=== PATIENT | female | born 1970 | race Two or more races ===

== ENCOUNTER 2024-08-30 07:10 | Outpatient (CLI) | payer MEDICAID, SELFPAY ==
[2024-08-29 10:00] VITALS: BMI 32.3
--- NOTE | 2024-08-29 10:15 | EKG_ITS ---
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
[2024-08-29 11:32] LABS: Basophils % (Auto) 1 % (0-2.5); Eosinophils # (Auto) 0.1 Thou/mm3 (0.0-0.5); Eosinophils % (Auto) 1 % (0-10); Hematocrit 37.2 % (36.0-46.0); Hemoglobin 12.5 g/dL (12.0-16.0); Immature Granulocytes % (Auto) 0 % (0-0); Immature Granulocytes Auto 0.01 Thou/mm3 (0.00-0.00); Lymphocytes # (Auto) 3.1 Thou/mm3 (1.0-4.8); Lymphocytes % (Auto) 55 % (10-50); Mean Corpuscular HGB Conc 33.6 g/dl (31.0-37.0); Mean Corpuscular Hemoglobin 27.1 pg (25.0-35.0); Mean Corpuscular Volume 81 fL (80-100); Monocytes # (Auto) 0.2 Thou/mm3 (0.0-0.8); Monocytes % (Auto) 4 % (0-12); Neutrophils # (Auto) 2.2 Thou/mm3 (1.8-7.7); Neutrophils % (Auto) 39 % (37-80); Nucleated Red Blood Cell % 0 /100 WBC (0); Platelet Count 382 Thou/mm3 (140-440); RDW Standard Deviation 41.1 fL (36.4-46.3); Red Blood Count 4.62 Miln/mm3 (4.00-5.20); White Blood Count 5.6 Thou/mm3 (3.6-11.0)
[2024-08-29 11:42] LABS: Partial Thromboplastin Time 26.8 Seconds (22.0-36.0); Prothrombin Time 10.8 Seconds (9.0-12.2)
[2024-08-29 11:43] LABS: Alanine Aminotransferase 21 U/L (10-49); Albumin, Serum 4.4 gm/dL (3.5-5.0); Albumin/Globulin Ratio 1.4 (1.2-2.2); Alkaline Phosphatase 132 U/L (46-116); Anion Gap 7 (7-16); Aspartate Amino Transferase 18 U/L (0-34); BUN/Creatinine Ratio 14 Ratio (12-20); Bilirubin,Total 0.7 mg/dL (0.3-1.2); Blood Urea Nitrogen 10 mg/dL (9-23); Calcium 9.3 mg/dL (8.3-10.6); Calcium (Corrected) 9.3 mg/dL (8.5-10.1); Carbon Dioxide 28.7 mMol/L (20.0-31.0); Chloride 104 mMol/L (98-107); Creatinine (Component) 0.7 mg/dL (0.6-1.3); Estimated Creatinine Clearance 85.6 mL/min (>60); Globulin 3.1 gm/dL (2.3-3.5); Glucose 100 mg/dL (74-106); Osmolality,Calculated 278 (275-295); Potassium 3.9 mMol/L (3.4-5.1); Sodium 140 mMol/L (136-145); Total Protein 7.5 gm/dL (5.7-8.2); eGFR > 60 See Note
[2024-08-30] VITALS (11 sets, daily range): BP systolic 110–140; BP diastolic 70–81; PULSE 63–77; RESP 12–19; TEMP 36.2–36.4; O2SAT 95–100; BMI 31.3
--- NOTE | 2024-08-30 | XR_ITS ---
Examination: Mammogram breast tissue specimen Exam date and time: August 30, 2024 1216 hours INDICATIONS: Biopsy-positive for carcinoma nodule 1:00 position left breast, preop ultrasound-guided needle localization of this mass this morning, posterior surgical resection TECHNIQUE AND FINDINGS: Single mammographic breast tissue specimen Marker and nodule are in the center of the specimen with wide margins IMPRESSION: Breast marker and nodule are in the center of the specimen
--- NOTE | 2024-08-30 08:28 | SUR.PREOP ---
Patient expressed gratitude for prayer before their procedure.
--- NOTE | 2024-08-30 09:00 | XR_ITS ---
Examination: Preop ultrasound-guided localization biopsy positive for carcinoma lesion left breast 1:00 Left breast sonography limited Exam date and time: August 30, 2024 0954 hours INDICATIONS: Biopsy left breast 1:00 nodule August 02, 2024 positive for breast carcinoma, preop surgical excision today, need for localization for the surgical excision TECHNIQUE AND FINDINGS: Informed consent provided. Timeout performed. Skin prepped over the left breast and sterile drape applied hand hygiene 1% lidocaine administered for local anesthesia Utilizing ultrasonographic guidance successful placement of a localization 5 cm Kopans needle in the suspicious nodule 1:00 position 1 cc methylene blue introduced Hookwire introduced and needle withdrawn Estimated blood loss 1 cc IMPRESSION: Successful preoperative ultrasound-guided localization biopsy positive for carcinoma lesion left breast 1:00 position
--- NOTE | 2024-08-30 09:00 | XR_ITS ---
Examination: [place] lymph node study left breast Nuclear medicine lymph glands imaging Exam date and time: August 30, 2024 0900 hours INDICATIONS: Biopsy-positive for breast carcinoma lesion 1:00 position left breast, preop lymph node dissection lumpectomy today TECHNIQUE AND FINDINGS: Informed consent provided. Timeout performed. Skin prepped over the left breast and sterile drape applied hand hygiene 1% lidocaine administered for local anesthesia 2.0 mCi technetium 90 9M filtered sulfur colloid introduced June No imaging Estimated blood loss 0 cc IMPRESSION: Successful sentinel lymph node study left breast as above
--- NOTE | 2024-08-30 13:03 | SUR.PHASEI ---
pt recieved from OR in recovery bay 1. pt obtunded, breathing unlabored on 8l oxymask, oral airway in place. v/s stable. pt dressing to left breast cdi, breast binder in place. report received from Dr. Hinton and [place] TORRES.
--- NOTE | 2024-08-30 13:21 | PD.SUROPNT ---
Date of Procedure 08/30/24 Pre Op Diagnosis Infiltrating ductal carcinoma of the left breast at the upper and outer quadrant at 1 o'clock position. Post Op Diagnosis Same Procedure Partial mastectomy of the left breast after guidewire localization [place] node biopsy of the left axilla Findings Patient was found to have 2 lymph nodes in the left axilla which showed radioactivity after technetium injection which were removed. Procedure Description The patient was taken to the x-ray suite where she underwent guidewire localization using ultrasound by Dr. Ovalle. The lesion was located at the upper and outer quadrant at 1 o'clock position. Patient also had a sentinel node injection performed by him. Then the patient was brought to the operating room. She was given LMA general anesthesia. Her left breast on the chest and the axilla including the left upper extremity were washed with ChloraPrep solution and draped in sterile manner. Timeout was performed. Then I used a neoprobe and identified some activity over the left axilla. I made a small incision in the left axilla for about 5 cm in length and dissected the subcutaneous tissue. At the deeper level there was activity by the neoprobe showing an uptake of technetium. I identified those areas and I did notice 2 lymph nodes which are about 1 cm in diameter adjoining to each other surrounding area was checked for any other activity and none was found. Then the wound was closed in layers using 3-0 chromic sutures over the left axilla. Skin was injected with half percent Marcaine and closed with 4-0 Monocryl subcuticular. Then attention was turned onto the breast where an upper outer quadrant lesion was approached by an incision peripherally over the upper portion of the left breast. I was able to dissect breast tissue and see the methylene blue. With the help of assistance I retracted this area and removed all the methylene blue stained tissues with the guidewire tip at the center of the specimen. X-ray was obtained the specimen and found out that the lesion was removed completely as per the radiologist. However I noticed that there was a incomplete margin therefore I went back and removed additional breast tissues and sent for pathology. Then the bleeding points were controlled with cautery and hot packs were used to look for any capillary bleeding. The subcutaneous tissue was left in place and the skin was closed with 4-0 Monocryl after injecting half percent Marcaine. Then the dressing was applied over both axilla and over the breast using breast binder and patient tolerated procedure well. Anesthesia other (General LMA) Pathology / specimen Other (1. 2 sentinel nodes, #2 left breast lesion with a guidewire, #3 additional medial margin) IVF Infused 800 Estimated Blood Loss 100 Condition Stable Disposition PACU Surgeon Partha Galvez MD Surgical Staff Operation Date: 08/30/24 11:15 Case Staff Anesthesiologist: Bandar Hinton RN First Assistant: Yessi Castro
[2024-08-30] MEDS: fentaNYL CIT INJ 50 mCg/ML AMP 2ML 25 MCG IV ×4 (13:23→14:51)
--- NOTE | 2024-08-30 13:47 | SUR.PHASEII ---
pt able to tolerate oral fluids without difficulty swallowing or nausea/vomiting.
--- NOTE | 2024-08-30 15:20 | SUR.PHASEII ---
pt awake and alert, breathing unlabored on room air. v/s stable. pt dressing to left breast cdi, breast binder in place. pt able to ambulate to wheelchair with steady gait. d/c instructions given with huey Zamora in room, all questions answered. pt d/c via wheelchair with all belongings.
== END 2024-08-30 15:20 | disposition home or self-care (01) ==
LOC: S2EX 09:14 → SIRX 09:15
PROVIDERS: PCP Nurse Practitioner; Referring Provider Surgery; Visit Provider Surgery
PROC: (CPT 19301; principal; 2024-08-30 11:00)
DX: C50.412 Malignant neoplasm of upper-outer quadrant of left female breast (principal); Z17.0 Estrogen receptor positive status [ER+]; Z17.21 Progesterone receptor positive status; Z17.32 Human epidermal growth factor receptor 2 negative status; E11.9 Type 2 diabetes mellitus without complications; Z79.85 Long-term (current) use of injectable non-insulin antidiabetic drugs; Z79.84 Long term (current) use of oral hypoglycemic drugs; Z01.810 Encounter for preprocedural cardiovascular examination
CPT/HCPCS: 19301; 38500; 38900; 19285; 36415; 76098; 80053; 85025; 85610; 85730; 93005; A4217; A4649; A9541; J0131; J1100; J2250; J2405; J2704; J3010; J3490

== ENCOUNTER 2024-10-24 10:48 | Outpatient (RCR) | payer MEDICAID, SELFPAY ==
--- NOTE | 2024-10-24 12:42 | CTCCONSULT_ITS ---
[facility] [address] [place], [place] [address] Consultation Note Date: 10/24/2024 MR#: [id number] Name: SANDRA WISE : 1970 Dx: C50.412 Malignant neoplasm of upper-outer quadrant of left female breast Attending physician. Anne Cruz NP [facility] [place] Referring physician. Ebenezer Galvez MD Reason for consultation. Patient with stage I left breast CA status post partial mastectomy referred to the cancer treatment center. History of Present Illness: Patient is a 54-year-old lady who felt the left breast lump following imaging studies showing suspicious area upper outer quadrant at 1:00 underwent a biopsy 08/02/2024 revealing 0.7 cm invasive ductal carcinoma ER/KS positive HER2/arielle negative by FISH. Patient underwent left partial mastectomy August 30, 2024 sentinel node removal performed by Dr. Sol. Final path was invasive ductal carcinoma 1.5 x 0.8 x 0.6 cm with 1 sentinel lymph node negative and 1 of 1 intramammary lymph node 0.15 cm. ER/KS positive HER2/arielle by FISH was negative. [id number] stage Ib. Patient now referred to the cancer treatment center. Past Medical History: History of chickenpox diabetes mellitus Meds metformin Acyclovir Trulicity Allergies none to meds Family history. 2 sisters reportedly recently diagnosed with breast CA. Social History: Patient perimenopausal age of first is 17 for pregnancies 4 worse Review of Systems: Railroad the breast lump Physical Exam: General: Well-appearing lady no acute distress HEENT: Atraumatic no cephalic extraocular is intact no oral lesion no cervical supraclavicular adenopathy CV: Left breast well-healed scar upper outer quadrant and axillary region. Chest clear to auscultation heart regular rate and rhythm ABD: Soft no organomegaly or tenderness EXT: No signs clubbing or edema. Assessment:#1 Stage Ib [id number] ER positive [place] positive HER2/arielle negative by FISH status post left partial mastectomy sentinel node removal. 08/30/2024. #2. strong family history of breast cancer with 2 sisters similar to her in age recently diagnosed. Will check BRCA genes #3. Oncotype DX /referral to medical oncologist Dr. Gomes. #4. Told patient at some point radiation therapy to residual left breast tissue. #5. Thank you very much for allowing me to evaluate this patient. Cc: MD Anne Meredith NP [facility] [place] [place] yes Electronically signed by: Donaldo Glasgow MD, DABR 10/24/2024 12:39 PM
== END 2024-10-26 23:59 | disposition home or self-care (01) ==
LOC: SCTC 10:48
PROVIDERS: PCP Nurse Practitioner; Referring Provider Surgery; Visit Provider Radiology Therapeutic Radiology
DX: C50.412 Malignant neoplasm of upper-outer quadrant of left female breast (principal); Z17.0 Estrogen receptor positive status [ER+]; Z17.21 Progesterone receptor positive status; Z17.32 Human epidermal growth factor receptor 2 negative status; Z90.12 Acquired absence of left breast and nipple; Z80.3 Family history of malignant neoplasm of breast
CPT/HCPCS: 99213; G0463

== ENCOUNTER 2024-12-02 10:05 | Outpatient (RCR) | payer MEDICAID, SELFPAY ==
--- NOTE | 2024-12-03 08:06 | CTCFLWUP_ITS ---
Patient: LESLIE WISE : 1970 Page 2 of 4 FOLLOW UP NOTE DATE OF SERVICE: 12/02/2024 NAME: LESLIE WISE ACCOUNT: [id number] : 1970 AGE: 54 INTERVAL HISTORY: New diagnosis of left breast cancer ONCOLOGY HISTORY: DIAGNOSIS: Malignant neoplasm of upper-outer quadrant of left female breast [ICD10] C50.412 DATE OF DIAGNOSIS: 08/02/2024 STAGE/TNM: Stage 1B [id number] TREATMENT HISTORY: Care?Plan Start?Date Cycle Day Intent HISTORY OF PRESENT ILLNESS: Patient is a 54-year-old lady who following imaging studies showing suspicious area left upper outer quadrant at 1:00 underwent a biopsy 08/02/2024 revealing invasive ductal carcinoma ER/TN positive HER2/neu2 + negative by FISH. Patient underwent left lumpectomy August 30, 2024 sentinel node removal performed by Dr. Sol. Final path was invasive ductal carcinoma 5 x 0.8 x 0.6 cm with 1 sentinel lymph node negative and 1 of 1 intramammary lymph node 0.15 cm. ER/TN positive HER2 2 plus /arielle by FISH was negative. [id number] stage Ib. Patient is hrelaed well. PTIENT COMPLAINING OF LUMP OVER her thigh. Patient noted to only few weeks earlier and it is hurting her while walking . OTHER MEDICAL HISTORY/CONDITIONS: DIABETES?CHICKEN?POX LLUPECTOMY REMOVAL OF LYMPOMA IN STOMACH AREA FAMILY HISTORY: Sibling: SISTERS/ BREAST LIVING 58 62 SOCIAL HISTORY: Occupational?History:?WORKS WITH [employer] Education?Level:?6-Attended?Vocational?School,?did?not?graduate Marital?Status:? 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 metformin - 500 mg Daily 2. Trulicity - Weekly Medications Last Reconciled by Magui Minor LVN on 12/02/2024 ALLERGIES: No Known Drug Allergies REVIEW OF SYSTEMS: A complete 14-point review of systems was performed and is negative except as noted in interval history. PHYSICAL EXAMINATION: VITAL SIGNS: Temperature?97.6, B/P?112/72, Height?62?inches Weight?175?lbs (Change?since?11/27/24:?-3?lbs) PAIN: 1 - Between no and mild pain ECOG Performance Status: 0 - Asymptomatic and fully active GENERAL APPEARANCE: Appears well, in no apparent distress, appropriately interactive. HEENT: Normocephalic, no temporal wasting, normal conjunctiva, no scleral icterus, normal hearing, lips without lesions, neck normal range of motion. CARDIOVASCULAR: Not assessed. PULMONARY: Normal respiratory effort, no respiratory distress or use of accessory muscles, speaking in full sentences, no tachypnea. EXTREMITIES: palpable mass over the thigh ,, not freely mobile SKIN: Normal skin appearance. NEUROLOGIC: Alert and oriented x4. PSHYCHIATRIC: Appropriate affect, mood normal, behavior normal, intact thought and speech. LABORATORY DATA: I have personally reviewed and interpreted each of the patient?s relevant lab tests, abnormal findings are below: Date ASSESSMENT/PLAN: Leslie, a young postmenopausal female patient with very early stage breast cancer, awaiting Oncotype DX test results to determine treatment approach. Early Stage Breast Cancer Assessment: Patient has very early stage breast cancer, with a tumor size of 1.7 cm (0.8 x 0.6 cm). The cancer is estrogen receptor (ER) positive, progesterone receptor (TN) 1% positive, HER2 2+ (considered negative), and Ki-67 2%, indicating a slow-growing tumor. Given the patient's young age and tumor size >0.5 cm, and lymph node positive aggressive treatment is being considered. BRCA testing was performed due to the patient's young age. Awaiting Oncotype DX test results to determine the risk of recurrence and potential benefit of chemotherapy. If the Oncotype DX score is <24 (or <26 for postmenopausal patients), hormone-blocking therapy alone may be sufficient. If the score is higher, chemotherapy will be recommended. Plan: - Await Oncotype DX test results (ordered by Dr. Glasgow, expected in approximately 2 weeks) - Order echocardiogram in preparation for potential chemotherapy - Order PET-CT scan for staging and to evaluate lump on her thigh - Order Eve testing to detect circulating tumor cells - Plan for radiation therapy (breast-conserving surgery performed) - Follow up with Kristina on and Monday to check on test results - Patient to call office in one week if not contacted by radiology for echocardiogram scheduling - Discuss cold cap therapy option for potential hair loss prevention during chemotherapy if needed ORDERS: Order # Description [id number] Comprehensive Metabolic Panel - 12 + CBC with Auto Diff + [id number] Initial PET/CT of Skull to Mid-Thigh [id number] MD Follow Up 4 Week [id number] RETURN TO CLINIC: I reviewed the diagnosis, prognosis, and recommended treatment/procedure options with the patient (and/or their legal telephone service representative), including the potential benefits, risks, side effects and alternative therapies. We also discussed the option of no treatment and the possibility of clinical trial participation, if applicable. All questions were addressed, and they demonstrated understanding. They provided informed consent to proceed with the proposed plan of care. BILLING AND COMPLIANCE: I reviewed external records from providers outside my specialty as summarized above. I spent a total of 50 minutes on this patient?s care on the day of their visit excluding time spent related to any billed procedures. This time includes time spent with the patient as well as time spent documenting in the medical record, reviewing patients records and tests, obtaining history, placing orders, communicating with other healthcare professionals, counseling the patient, family or caregiver, and/or care coordination for the diagnoses above. Electronically Signed by: Tim Gomes MD T: 8:04 AM CC: Rosa Elena? PCP: Referring: Anne Cruz This document was completed utilizing speech recognition software. Grammatical errors, random word insertions, pronoun errors, and incomplete sentences are an occasional consequence of this system due to software limitations, ambient noise, and hardware issues. Any formal questions or concerns about the content, text or information contained within the body of this dictation should be directly addressed to the provider for clarification.
== END 2024-12-26 23:59 | disposition home or self-care (01) ==
LOC: SCTC 10:05
PROVIDERS: PCP Nurse Practitioner; Referring Provider Nurse Practitioner; Visit Provider Internal Medicine Hematology & Oncology
DX: C50.412 Malignant neoplasm of upper-outer quadrant of left female breast (principal); Z17.0 Estrogen receptor positive status [ER+]; Z17.21 Progesterone receptor positive status; Z17.32 Human epidermal growth factor receptor 2 negative status
CPT/HCPCS: 36415; 99213; G0463

== ENCOUNTER 2025-01-07 11:42 | Outpatient (RCR) | payer MEDICAID, SELFPAY ==
--- NOTE | 2025-01-07 12:32 | CTCFLWUP_ITS ---
Patient: LESLIE WISE : 1970 Page 2 of 3 FOLLOW UP NOTE DATE OF SERVICE: 01/07/2025 NAME: LESLIE WISE ACCOUNT: [id number] : 1970 AGE: 54 INTERVAL HISTORY: Oncotype follow up ONCOLOGY HISTORY: DIAGNOSIS: Malignant neoplasm of upper-outer quadrant of left female breast [ICD10] C50.412 DATE OF DIAGNOSIS: 08/02/2024 STAGE/TNM: Stage 1B [id number] TREATMENT HISTORY: Care?Plan Start?Date Cycle Day Intent HISTORY OF PRESENT ILLNESS: Patient is a 54-year-old lady who following imaging studies showing suspicious area left upper outer quadrant at 1:00 underwent a biopsy 08/02/2024 revealing invasive ductal carcinoma ER/ME positive HER2/neu2 + negative by FISH. Patient underwent left lumpectomy August 30, 2024 sentinel node removal performed by Dr. Sol. Final path was invasive ductal carcinoma 5 x 0.8 x 0.6 cm with 1 sentinel lymph node negative and 1 of 1 intramammary lymph node 0.15 cm. ER/ME positive HER2 2 plus /arielle by FISH was negative. [id number] stage Ib. Patient is hrelaed well. PTIENT COMPLAINING OF LUMP OVER her thigh. Patient noted to only few weeks earlier and it is hurting her while walking . OTHER MEDICAL HISTORY/CONDITIONS: DIABETES?CHICKEN?POX LLUPECTOMY REMOVAL OF LYMPOMA IN STOMACH AREA FAMILY HISTORY: Sibling: SISTERS/ BREAST LIVING 58 62 SOCIAL HISTORY: Occupational?History:?WORKS WITH [employer] Education?Level:?6-Attended?Vocational?School,?did?not?graduate Marital?Status:? 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 acyclovir - 400 mg 1 tab Daily 2. metformin - 500 mg Daily 3. Trulicity - Weekly Medications Last Reconciled by Naomi Deshpande MD on 01/07/2025 ALLERGIES: No Known Drug Allergies REVIEW OF SYSTEMS: A complete 14-point review of systems was performed and is negative except as noted in interval history. PHYSICAL EXAMINATION: VITAL SIGNS: Temperature?96.7, B/P?126/80, Oxygen?Saturation?97% Weight?178?lbs PAIN: 4 - Moderate pain ECOG Performance Status: 0 - Asymptomatic and fully active GENERAL APPEARANCE: Appears well, in no apparent distress, appropriately interactive. HEENT: Normocephalic, no temporal wasting, normal conjunctiva, no scleral icterus, normal hearing, lips without lesions, neck normal range of motion. CARDIOVASCULAR: Not assessed. PULMONARY: Normal respiratory effort, no respiratory distress or use of accessory muscles, speaking in full sentences, no tachypnea. EXTREMITIES: palpable mass over the thigh ,, not freely mobile SKIN: Normal skin appearance. NEUROLOGIC: Alert and oriented x4. PSHYCHIATRIC: Appropriate affect, mood normal, behavior normal, intact thought and speech. LABORATORY DATA: I have personally reviewed and interpreted each of the patient?s relevant lab tests, abnormal findings are below: Date ASSESSMENT/PLAN: Leslie, a young postmenopausal female patient with very early stage breast cancer, awaiting Oncotype DX test results to determine treatment approach. Early Stage Breast Cancer Assessment: Patient has very early stage breast cancer, with a tumor size of 1.7 cm (0.8 x 0.6 cm). The cancer is estrogen receptor (ER) positive, progesterone receptor (ME) 1% positive, HER2 2+ (considered negative), and Ki-67 2%, indicating a slow-growing tumor. Given the patient's young age and tumor size >0.5 cm, and lymph node positive aggressive treatment is being considered. BRCA testing was performed due to the patient's young age. Oncotype dx is very low -no chemotherapy benefit -anastrazole 1 mg tablet daily Calcium and vit d3 daily 3 months Plastic for reconstruction RETURN TO CLINIC: I reviewed the diagnosis, prognosis, and recommended treatment/procedure options with the patient (and/or their legal sales promotion representative), including the potential benefits, risks, side effects and alternative therapies. We also discussed the option of no treatment and the possibility of clinical trial participation, if applicable. All questions were addressed, and they demonstrated understanding. They provided informed consent to proceed with the proposed plan of care. BILLING AND COMPLIANCE: I reviewed external records from providers outside my specialty as summarized above. I spent a total of 50 minutes on this patient?s care on the day of their visit excluding time spent related to any billed procedures. This time includes time spent with the patient as well as time spent documenting in the medical record, reviewing patients records and tests, obtaining history, placing orders, communicating with other healthcare professionals, counseling the patient, family or caregiver, and/or care coordination for the diagnoses above. Electronically Signed by: Tim Gomes MD T: 12:29 PM CC: Partha?Lenny? PCP: Referring: Anne Cruz This document was completed utilizing speech recognition software. Grammatical errors, random word insertions, pronoun errors, and incomplete sentences are an occasional consequence of this system due to software limitations, ambient noise, and hardware issues. Any formal questions or concerns about the content, text or information contained within the body of this dictation should be directly addressed to the provider for clarification.
== END 2025-01-26 23:59 | disposition home or self-care (01) ==
LOC: SCTC 11:42
PROVIDERS: PCP Nurse Practitioner; Referring Provider Nurse Practitioner; Visit Provider Internal Medicine Hematology & Oncology
DX: C50.412 Malignant neoplasm of upper-outer quadrant of left female breast (principal); Z17.0 Estrogen receptor positive status [ER+]; Z17.21 Progesterone receptor positive status; Z17.32 Human epidermal growth factor receptor 2 negative status; Z79.811 Long term (current) use of aromatase inhibitors; Z78.0 Asymptomatic menopausal state
CPT/HCPCS: 99212; G0463

== ENCOUNTER 2025-01-29 10:00 | Outpatient (RCR) | payer MEDICAID, SELFPAY ==
--- NOTE | 2025-01-29 12:41 | CTCTXPLN_ITS ---
[facility] [address] [place], [place] [address] Physician Clinical Treatment Planning Note Date of Service: 01/29/2025 Name: SANDRA FRANDY LaiB.: 1970 The patient has agreed to proceed with Radiation therapy. Tests and supporting medical records were interpreted to assist in defining the tumor location and extent of disease. Further imaging will be necessary to contour and delineate the volume to which the XRT will be provided. A. Treatment Intent: Curative B. Modality: Mixed C. Requested Technique: 3D D. Treatment Site: Left breast E. Critical structures to be contoured on plan: F. In order to accomplish this plan, I am ordering/Prescribing the followin. Simulations (s) will be performed to accomplish a reproducible treatment position, to determine optimal treatment portals/beam arrangements, to design beam modifying devices and verify treatment portals on patient prior to the commencement of Radiation Therapy. Left breast 2. Devices; for immobilization and beam shaping: Vac-Concha 3. CT Guidance for placement of XRT emmanuel Scan area: 4. Portal images Frequency: 5. Invivo transit dose measurement once per week on all VMAT patients. 6. Special Physics Consult Requested for: 7. Other requests: G. Dose Objectives: Curative Electronically signed by: Donaldo Glasgow M.D. 01/29/2025 12:39 PM
--- NOTE | 2025-01-29 12:41 | CTCFLWUP_ITS ---
[facility] [address] [place], [place] [address] FOLLOW-UP NOTE Date: 01/29/2025 MR#: [id number] Name: SANDRA WISE : 1970 Dx: C50.412 Malignant neoplasm of upper-outer quadrant of left female breast Identification. Patient with stage Ib ( 1.7 cm) left breast CA status post left partial mastectomy 08/30/2024. ER/ND positive FISH was negative. Oncotype DX is low and Dr. Pop has placed patient on anastrozole. See patient the area of the left upper outer quadrant of the breast appears well-healed along with the axillary scar. Discussion regarding the course of treatment was made with the patient and consent signed. Short course 3 weeks with a possible E boost was discussed with the patient. Side effects explained. Electronically signed by: Donaldo Glasgow M.D. 01/29/2025 12:38 PM
--- NOTE | 2025-01-29 12:43 | CTCTXPLNST_ITS ---
Radiation Oncology Treatment Planning Sheet Name: SANDRA WISE MR#: [id number] : 1970 Dx: C50.412 Malignant neoplasm of upper-outer quadrant of left female breast Date of Service: 01/29/2025 Account #: ?? Pt Treatment Intent: curative palliative other: Stage: Procedure CPT # Ordered Spec. Procedure 96235 Adair Complex (set-up) 96757 Left breast/E boost 1 Adair Simple 35148 1 IMRT Plan 01253 MLC Devices VMAT 15360 Adair 3 D 33271 1 TRTMT dev Complex 96436 Vac-Concha/2 tangents/E boost 4 TRTMT dev simple 43516 1 Basic Ellis 10300 5 Special Dosimetry 35481 Spec Physics 22809 Port Films 43217 3 SRS Cranial/1FX 10149 SBR 5 FX or Less /ex: 5 = 5 fx 75959 IMRT Simple 73309 IMRT Complex 93730 IGRT 13885 Rad del Wedding Reality 6- 87744 Rad del Wedding Reality 11- 71034 5005 20 Cont Med Physics 75568 4 Treatment Planning 68187 1` Weekly Evaluation 60419 4 Rad del com 20 mev 81832 Special Port Plan 63681 TRTMT dev inter 07525 Isodose Complex 23261 Isodose simple 35312 Resp Motion Mgmt Simulation 86041 Placement of Fiducial Markers 71756 Electronically Signed By: Donaldo Glasgow MD, INNAR 01/29/2025 12:41 PM
== END 2025-02-25 23:59 | disposition home or self-care (01) ==
LOC: SCTC 10:00
PROVIDERS: PCP Nurse Practitioner; Referring Provider Nurse Practitioner; Visit Provider Radiology Therapeutic Radiology
DX: C50.412 Malignant neoplasm of upper-outer quadrant of left female breast (principal); Z17.0 Estrogen receptor positive status [ER+]; Z17.21 Progesterone receptor positive status; Z17.32 Human epidermal growth factor receptor 2 negative status; Z90.12 Acquired absence of left breast and nipple; Z79.811 Long term (current) use of aromatase inhibitors
CPT/HCPCS: 99212; G0463

== ENCOUNTER → 2025-02-09 | Outpatient (CLI) | payer MEDICAID, SELFPAY ==
--- NOTE | 2025-02-09 | ECHO_ITS ---
Transthoracic Echo Report Ht (in): 62 Wt (lb): 178 Exam Location: Echo Lab Status: Outpatient Yarn Finisher: Ramona Abreu Indications: Procedure Performed: BP: / HR: MEASUREMENTS (Male / Female) Normal Values 2D ECHO LV Diastolic Diameter PLAX 4.2 cm 4.2 - 5.9 / 3.9 - 5.3 cm LV Systolic Diameter PLAX 2.5 cm IVS Diastolic Thickness 0.9 cm 0.6 - 1.0 / 0.6 - 0.9 cm LVPW Diastolic Thickness 0.8 cm 0.6 - 1.0 / 0.6 - 0.9 cm LV Relative Wall Thickness 0.4 LVOT Diameter 1.7 cm Aortic Root Diameter 3.1 cm LV Ejection Fraction MOD BP 59.8 % >= 55 % LV Ejection Fraction MOD 4C 51.6 % LV Ejection Fraction 4C AL 54.1 % LV Ejection Fraction MOD 2C 62.0 % LV Ejection Fraction 2C AL 62.1 % LA Volume Index 22.6 cm?/m? 16 - 28 cm?/m? DOPPLER AV Peak Velocity 155.0 cm/s AV Peak Gradient 9.6 mmHg AV Mean Gradient 4.0 mmHg AV Velocity Time Integral 31.2 cm LVOT Peak Velocity 119.0 cm/s LVOT Peak Gradient 5.7 mmHg LVOT Velocity Time Integral 25.5 cm AV Area Cont Eq vti 1.9 cm? AV Area Cont Eq pk 1.7 cm? MV Area PHT 3.7 cm? Mitral E Point Velocity 86.8 cm/s Mitral A Point Velocity 54.8 cm/s Mitral E to A Ratio 1.6 LV E' Lateral Velocity 8.8 cm/s Mitral E to LV E' Lateral Ratio 9.9 LV E' Septal Velocity 9.8 cm/s Mitral E to LV E' Septal Ratio 8.9 TR Peak Velocity 217.5 cm/s TR Peak Gradient 18.9 mmHg PV Peak Velocity 102.0 cm/s PV Peak Gradient 4.2 mmHg FINDINGS Left Ventricle Normal left ventricular size, wall thickness, systolic function with no obvious regional wall motion abnormalities. Normal left ventricular diastolic filling pattern for age. The ejection fraction is visually estimated at 60%. Right Ventricle The right ventricle is normal in size and systolic function. Left Atrium The left atrium is normal by two-dimensional, color flow and Doppler imaging with no structural abnormalities, no thrombus formation present. Right Atrium The right atrium is normal by two-dimensional imaging, color flow and Doppler imaging with no structural abnormalities, no thrombus formation present. Atrial Septum The interatrial septum appears normal with no evidence of a shunt. Aorta The aorta is normal by two-dimensional, color flow and Doppler interrogation. Mitral Valve The mitral valve is normal by two-dimensional, color flow and Doppler interrogation. Trace mitral regurgitation. Aortic Valve The aortic valve is trileaflet and normal by two-dimensional, color flow and Doppler interrogation. There is no significant aortic valve regurgitation. Tricuspid Valve The tricuspid valve is normal by two-dimensional, color flow and Doppler interrogation. There is trace tricuspid valve regurgitation. Pulmonic Valve The pulmonic valve is not well visualized. There is no significant pulmonic valve regurgitation. Vessels The pulmonary artery appears normal. The inferior vena cava pulmonary and hepatic veins appear normal. Pericardium The pericardium is normal by two-dimensional imaging. There is no significant pericardial effusion. CONCLUSIONS Indication: Malignant neoplasm of upper - outer quadrant of left female breast. The transthoracic study is normal by two-dimensional, color flow imaging and Doppler interrogation. Normal LV size and function. Approximate ejection fraction is 60%. The RV is normal in size and systolic function. Trace mitral and trace tricuspid regurgitation No wall motion abnormalities Kelly Toribio (Electronically Signed) Final Date: 10 February 2025 17:51
== END | disposition home or self-care (01) ==
LOC: SDIM 14:11
PROVIDERS: PCP Obstetrics & Gynecology Maternal & Fetal Medicine; Referring Provider Internal Medicine Hematology & Oncology; Visit Provider Internal Medicine Hematology & Oncology
DX: I08.1 Rheumatic disorders of both mitral and tricuspid valves (principal); C50.412 Malignant neoplasm of upper-outer quadrant of left female breast
CPT/HCPCS: 93306

== ENCOUNTER → 2025-02-25 | Outpatient (CLI) | payer MEDICAID, SELFPAY ==
--- NOTE | 2025-02-25 12:30 | XR_ITS ---
EXAMINATION: PET/CT FUSION SKULL TO THIGH EXAM DATE AND TIME: February 25, 2025, 1308 hours, comparison mammogram August 30, 2024, ultrasound-guided localization biopsy positive for carcinoma lesion 1:00 position left breast, August 30, 2024, breast carcinoma diagnosis restaging CTDI:vol (mGy) 6.75 DLP: (mGycm) 616.64 PROCEDURE: 15.92 mCi FDG was administered intravenously To allow for distribution and uptake of radiotracer, the patient was allowed to rest quietly in a shielded room. Imaging was performed on an integrated 16-slice PET/CT scanner, with scanning from the skull base to the mid thigh. Serum blood glucose at the time of the injection was measured 135 mg/dL. CT scanning was performed without oral or intravenous contrast material. FINDINGS: Head and Neck: There is no bella hypermetabolism in the neck. The visualized portions of the brain are normal in appearance on CT. Chest: Postop changes left breast with skin thickening No breast or chest wall or axillary mass noted. 9 mm non hypermetabolic pulmonary nodule lingular segment left upper lobe, image 96 Abdomen and Pelvis: There is no bella hypermetabolism in retroperitoneal or pelvic chains. The spleen is normal in size and FDG avidity. Musculoskeletal: Marrow uptake is within normal range. IMPRESSION: 9 mm non hypermetabolic pulmonary nodule lingular segment left upper lobe, recommend high-resolution CT chest without contrast follow-up
== END | disposition home or self-care (01) ==
PROVIDERS: PCP Nurse Practitioner; Referring Provider Internal Medicine Hematology & Oncology; Visit Provider Internal Medicine Hematology & Oncology
DX: R91.1 Solitary pulmonary nodule (principal); C50.412 Malignant neoplasm of upper-outer quadrant of left female breast
CPT/HCPCS: 78815; A9552

== ENCOUNTER 2025-04-23 09:26 | Outpatient (RCR) | payer MEDICAID, SELFPAY ==
--- NOTE | 2025-03-31 10:47 | CTCTRTNOTE_ITS ---
[facility] [address], [place] [address] Weekly Management Date: 03/31/2025 ?? Name: SANDRA Schultz.: 1970 Account #: ?? A. Patient is currently at 3738 cGy. B. Patient is tolerating treatment well. C. Resume radiation therapy. Set up boost in a.m. after last photon fraction Electronically signed by: Donaldo Glasgow M.D. 03/31/2025 10:45 AM
== END 2025-04-27 23:59 | disposition home or self-care (01) ==
LOC: SCTC 09:26
PROVIDERS: PCP Nurse Practitioner; Referring Provider Nurse Practitioner; Visit Provider Radiology Therapeutic Radiology
DX: Z51.0 Encounter for antineoplastic radiation therapy (principal); C50.412 Malignant neoplasm of upper-outer quadrant of left female breast; Z17.0 Estrogen receptor positive status [ER+]; Z17.21 Progesterone receptor positive status; Z17.32 Human epidermal growth factor receptor 2 negative status; Z90.12 Acquired absence of left breast and nipple
CPT/HCPCS: 36415; 77290; 77300; 77332; 77336; 77412; 77417; 99212; G0463